=== PATIENT | female | born 1990 | race African-American/Black ===

== ENCOUNTER 2021-07-21 22:21 | Emergency (ER) | payer SELFPAY ==
[2021-07-21] MEDS ORDERED: diphenhydrAMINE 25 MG CAP ONE (23:26)
[2021-07-21] MEDS ORDERED: predniSONE 20 MG TAB ONE ×2 (23:26)
== END 2021-07-21 23:27 | disposition home or self-care (01) ==
LOC: CSHERS 22:21
DX: L23.9 Allergic contact dermatitis, unspecified cause (principal)
CPT/HCPCS: 99283; J7512

== ENCOUNTER 2022-01-19 20:30 | Emergency (ER) | payer SELFPAY ==
[2022-01-19] MEDS ORDERED: Acetaminophen 500 MG TAB ONE (21:27)
[2022-01-19] MEDS ORDERED: Ondansetron ODT 4 MG TAB ONE (21:27)
== END 2022-01-20 00:27 | disposition home or self-care (01) ==
LOC: CSHERS 20:30
DX: U07.1 COVID-19 (principal); J06.9 Acute upper respiratory infection, unspecified; R11.2 Nausea with vomiting, unspecified
CPT/HCPCS: 87804; 99283; Q0162; U0003; U0005

== ENCOUNTER 2022-09-21 21:21 | Emergency (ER) | payer SELFPAY | END 2022-09-21 23:52 | disposition left against medical advice (07) | LOC: CSHERS 21:21 | DX: Z53.21 Procedure and treatment not carried out due to patient leaving prior to being seen by health care provider (principal) ==

== ENCOUNTER 2022-11-26 17:28 | Emergency (ER) | payer BC, SELFPAY ==
[2022-11-26 18:41] LABS: #Eosinphils 0.1 10x3/uL (0.0-0.5); #Neutrophils 9.3 10x3/uL (1.5-8.4); %Basophils 0.2 % (0.0-2.0); %Eosinophils 0.4 % (0.0-6.0); %Lymphocytes 19.7 % (18.0-47.0); %Monocytes 7.9 % (0.0-10.0); %Neutrophils 71.5 % (40.0-75.0); Hemoglobin 11.7 g/dL (12.0-15.5); Mean Corpuscular HGB CONC 34.4 g/dL (32.0-36.0); Mean Corpuscular Hemoglobin 27.9 pg (27.0-33.0); Mean Corpuscular Volume 81.1 fl (81.6-98.3); Mean Platelet Volume 9.2 fl (7.4-10.4); Platelet Count 340 10x3/uL (150-450); RBC Distribution Width 13.4 % (11.5-14.5); Red Blood Cell (RBC) Count 4.19 10x6/uL (3.90-5.03)
[2022-11-26 18:59] LABS: ALT (SGPT) 31 U/L (8-55); AST (SGOT) 24 U/L (5-34); Albumin 3.9 g/dL (3.5-5.0); Alkaline Phosphatase 58 U/L (40-110); Anion Gap 13 mmol/L (10-20); BUN (Urea Nitrogen) 10 mg/dL (7.0-18.7); Bilirubin, Total 0.5 mg/dL (0.2-1.2); Calc. Creatinine Clearance 0 mL/min (70-130); Calcium 9.2 mg/dL (7.8-10.44); Carbon Dioxide 22 mmol/L (22-29); Chloride 104 mmol/L (98-107); Estimated GFR 112; Globulin 3.7 g/dL (2.4-3.5); Glucose 83 mg/dL (70-105); Potassium 3.9 mmol/L (3.5-5.1); Protein, Total 7.6 g/dL (6.0-8.3); Sodium 135 mmol/L (136-145)
== END 2022-11-26 19:22 | disposition home or self-care (01) ==
LOC: CSHERS 17:28
DX: R03.1 Nonspecific low blood-pressure reading (principal); F17.200 Nicotine dependence, unspecified, uncomplicated
CPT/HCPCS: 36415; 80053; 85025; 99284

== ENCOUNTER 2023-06-02 09:39 | Day surgery (SDC) | payer BC, MEDICAID ==
[2023-06-02 10:14] VITALS: BMI 35.5
[2023-06-02] MEDS ORDERED: hydrALAZINE 20 MG/ML VIAL SLOW IVP PRN (10:34)
== END 2023-06-02 14:00 | disposition home health service (06) ==
LOC: CSHLD/OP 09:39
PROVIDERS: ATTEND Family Medicine
DX: O36.5930 Maternal care for other known or suspected poor fetal growth, third trimester, not applicable or unspecified (principal); Z79.899 Other long term (current) drug therapy; Z3A.33 33 weeks gestation of pregnancy
CPT/HCPCS: 99282

== ENCOUNTER 2023-06-16 17:33 | Inpatient (IN) | payer BC, OTHER ==
[2023-06-16] MEDS ORDERED: Methylergonovine 0.2 MG/ML VIAL IM PRN (17:46)
[2023-06-16] MEDS ORDERED: Diphenoxylate HCl/Atropine Tablet PO PRN (17:46)
[2023-06-16] MEDS ORDERED: hydrALAZINE 20 MG/ML VIAL SLOW IVP PRN ×2 (17:46→23:22)
[2023-06-16] MEDS ORDERED: Bicitra 30 ML UDCUP PO PRN (17:46)
[2023-06-16] MEDS ORDERED: Ondansetron PF 4 MG/2 ML Vial IVP PRN ×4 (17:46→23:22)
[2023-06-16] MEDS ORDERED: Promethazine HCl 25 MG/ML VIAL IM PRN ×3 (17:46→23:22)
[2023-06-16] MEDS ORDERED: Misoprostol 200 MCG TAB PR PRN (17:46)
[2023-06-16] MEDS ORDERED: Famotidine/PF 20 mg/2ml Vial SLOW IVP PRN (17:46)
[2023-06-16] MEDS ORDERED: Tranexamic Acid 1,000 MG/10 ML VIAL IVP PRN (17:46)
[2023-06-16] MEDS ORDERED: Carboprost 250 MCG/ML AMP IM PRN (17:46)
[2023-06-16] MEDS ORDERED: CEFAZOLIN 2 GM VIAL ONE (17:51)
[2023-06-16] MEDS ORDERED: CEFAZOLIN 2 GM in Sodium Chloride 0.9% 100 ML IVPB SCH (18:00)
[2023-06-16] MEDS ORDERED: Lactated Ringer's 1,000 ML IV SCH (18:00)
[2023-06-16] MEDS ORDERED: Oxytocin 30 units/NS 500 ML 500 ML IV SCH (18:00)
[2023-06-16 18:16] VITALS: BMI 34.0
[2023-06-16] MEDS ORDERED: Ondansetron PF 4 MG/2 ML Vial ONE (18:28)
[2023-06-16] MEDS ORDERED: Morphine PF 10 MG/10 ML VIAL ONE (18:28)
[2023-06-16] MEDS ORDERED: PHENYLEPHRINE-NS 100 MCG/ML 10 ML SYRINGE ONE (18:28)
[2023-06-16] MEDS ORDERED: Oxytocin 10 UNITS/ML VIAL ONE (18:28)
[2023-06-16] MEDS ORDERED: Dexamethasone 4 mg/ml Vial ONE (18:28)
[2023-06-16 18:33] LABS: Hematocrit 32.5 % (34.9-44.5); Hemoglobin 11.3 g/dL (12.0-15.5); Mean Corpuscular HGB CONC 34.8 g/dL (32.0-36.0); Mean Corpuscular Volume 80.4 fl (81.6-98.3); Mean Platelet Volume 9.9 fl (7.4-10.4); Platelet Count 397 10x3/uL (150-450); RBC Distribution Width 13.2 % (11.5-14.5); Red Blood Cell (RBC) Count 4.04 10x6/uL (3.90-5.03); White Blood Cell (WBC) Count 13.1 10x3/uL (3.5-10.5)
[2023-06-16 19:02] LABS: HBSAg Index 0.18 S/CO (0-0.99); Hep B Surf Ag - L&D Non-Reactive S/CO (NonReactive)
[2023-06-16 19:03] LABS: Syphilis Antibody Nonreactive (Nonreactive); Syphilis Antibody Index 0.12 S/CO (<1.00 Non-Reactive)
[2023-06-16] MEDS ORDERED: Naloxone HCl 0.4 mg/ml Vial IVP PRN ×2 (19:31)
[2023-06-16] MEDS ORDERED: diphenhydrAMINE 50 MG/ML VIAL IVP PRN (19:31)
[2023-06-16] MEDS ORDERED: Ketorolac Tromethamine 30 MG (1 mL) VIAL IVP PRN (19:31)
[2023-06-16] MEDS ORDERED: Promethazine HCl 25 MG SUPP PR PRN (19:31)
[2023-06-16] MEDS ORDERED: Naloxone HCl 0.4 mg/ml Vial IV PRN (19:31)
[2023-06-16] MEDS ORDERED: Meperidine HCl/PF 25 MG (1 mL) VIAL SLOW IVP PRN (19:31)
[2023-06-16] MEDS ORDERED: fentaNYL 50 mcg/mL 1 mL Vial SLOW IVP PRN (19:31)
[2023-06-16] MEDS ORDERED: Moisturizing Cream (Eucerin) 113 GM JAR TOP PRN (19:31)
[2023-06-16] MEDS ORDERED: Communication Order-Pharmacy FS SCH (19:45)
[2023-06-16] MEDS ORDERED: Ketorolac Tromethamine 30 MG (1 mL) VIAL IVP SCH (19:45)
[2023-06-16] MEDS ORDERED: diphenhydrAMINE 25 MG CAP PO PRN (23:22)
[2023-06-16] MEDS ORDERED: Boostrix 0.5 ML (Tdap) VIAL (>/=7 yrs of age) IM ONE (23:22)
[2023-06-16] MEDS ORDERED: Lanolin Ointment 7 GM TUBE TOP PRN (23:22)
[2023-06-16] MEDS ORDERED: Bisacodyl 10 MG SUPP PR PRN (23:22)
[2023-06-16] MEDS ORDERED: Simethicone Chewable 80 MG TAB PO PRN (23:22)
[2023-06-16] MEDS ORDERED: Ferrous Sulfate 325 MG TAB PO SCH (23:30)
[2023-06-16] MEDS ORDERED: Docusate 100 MG CAP PO SCH (23:30)
[2023-06-17] MEDS ORDERED: Ketorolac Tromethamine 30 MG (1 mL) VIAL IVP SCH (01:30)
[2023-06-17 03:36] LABS: Mean Corpuscular HGB CONC 34.5 g/dL (32.0-36.0); Mean Corpuscular Hemoglobin 28.1 pg (27.0-33.0); Mean Corpuscular Volume 81.5 fl (81.6-98.3); Mean Platelet Volume 9.6 fl (7.4-10.4); Platelet Count 339 10x3/uL (150-450); RBC Distribution Width 13.1 % (11.5-14.5); Red Blood Cell (RBC) Count 3.56 10x6/uL (3.90-5.03); White Blood Cell (WBC) Count 17.1 10x3/uL (3.5-10.5)
[2023-06-17] MEDS: Ketorolac Tromethamine 30 MG (1 mL) VIAL IVP SCH ×3 (05:05→16:34)
[2023-06-17] MEDS ORDERED: HYDROcodone/Acetaminophen 5/325 mg Tablet PO PRN ×2 (07:45)
[2023-06-17] MEDS ORDERED: Meperidine HCl/PF 25 MG (1 mL) VIAL IM PRN (07:45)
[2023-06-17] MEDS: Ferrous Sulfate 325 MG TAB PO SCH ×2 (07:47→22:00)
[2023-06-17] MEDS: Prenatal Vitamin 1 TAB PO SCH (10:00)
[2023-06-17] MEDS: Docusate 100 MG CAP PO SCH ×2 (10:00→22:00)
[2023-06-17] MEDS: Ibuprofen 800 MG TAB PO SCH (22:00)
[2023-06-18] MEDS: Ibuprofen 800 MG TAB PO SCH ×3 (05:36→21:10)
[2023-06-18] MEDS: Ferrous Sulfate 325 MG TAB PO SCH ×2 (09:50→21:10)
[2023-06-18] MEDS: Docusate 100 MG CAP PO SCH ×2 (09:51→21:10)
[2023-06-18] MEDS: Prenatal Vitamin 1 TAB PO SCH (09:51)
[2023-06-19] MEDS: Ibuprofen 800 MG TAB PO SCH (05:31)
[2023-06-19 08:33] VITALS: BP 126/74; TEMP 98.4
[2023-06-19] MEDS: Prenatal Vitamin 1 TAB PO SCH (09:48)
[2023-06-19] MEDS: Ferrous Sulfate 325 MG TAB PO SCH (09:48)
[2023-06-19] MEDS: Docusate 100 MG CAP PO SCH (09:49)
== END 2023-06-19 15:00 | disposition home or self-care (01) | DRG 788 ==
LOC: CSHLD 17:33 → CSHPP 22:34
PROVIDERS: ADMIT Family Medicine; ATTEND Family Medicine
PROC: 10D00Z1 Extraction of Products of Conception, Low, Open Approach (ICD-10-PCS; principal; 2023-06-16)
DX: O76 Abnormality in fetal heart rate and rhythm complicating labor and delivery (principal); Z3A.35 35 weeks gestation of pregnancy; Z37.0 Single live birth
CPT/HCPCS: 36415; 51702; 85027; 86780; 86850; 86900; 86901; 87340; J1100; J1885; J2274; J2405; J2590

== ENCOUNTER 2024-02-11 10:36 | Emergency (ER) | payer OTHER ==
[2024-02-11] MEDS ORDERED: Ketorolac Tromethamine 30 MG (1 mL) VIAL ONE (11:25)
[2024-02-11] MEDS ORDERED: Diazepam 5 MG TAB ONE (11:26)
== END 2024-02-11 12:00 | disposition home or self-care (01) ==
LOC: CSHERS 10:36
DX: M62.830 Muscle spasm of back (principal)
CPT/HCPCS: 96372; 99283; J1885